=== PATIENT | male | born 1990 | race Caucasian/White ===

== ENCOUNTER 2017-02-26 15:45 | Emergency (ER) | payer BC ==
[~2017-02-26] VITALS: Ht 180.3 cm; Wt 83.9 kg
[2017-02-26 15:45] VITALS: BP_SYST 128
[2017-02-26 16:59] LABS: CREATININE 1.4 mg/dL (0.55-1.30); POTASSIUM 3.9 mmol/L (3.5-5.1)
[2017-02-26 17:02] LABS: HEMATOCRIT 47.7 % (36-54); MEAN CORPUSCULAR HEMOGLOBIN 28 pg (27-31); MEAN CORPUSCULAR HGB CONC 34 % (32-36); MEAN CORPUSCULAR VOLUME 84 fL (79.0-98.0); PLATELET COUNT (AUTO) 256 K/uL (130-430); RED BLOOD CELL COUNT(AUTO) 5.67 MIL/uL (4.2-6.2); RED CELL DISTRIBUTION WIDTH 12.3 % (9.0-15.0); WHITE BLOOD COUNT (AUTO) 12.3 K/uL (4.8-10.8)
[2017-02-26 17:04] LABS: ALBUMIN 4.4 g/dL (3.4-4.8); TOTAL BILIRUBIN 0.9 mg/dL (0.0-1.0); TOTAL PROTEIN, SERUM 7.9 g/dL (6.4-8.3)
[2017-02-26 17:08] LABS: BAND % (MANUAL) 8 % (0-6); BASOPHILS % (MANUAL) 0 % (0-2); EOSINOPHILS % (MANUAL) 1 % (0-7); LYMPHOCYTES % (MANUAL) 4 % (20-46); MONOCYTES % (MANUAL) 6 % (0-11)
[2017-02-26] MEDS: NACL 0.9% 1,000 ML IV ONE (17:29)
[2017-02-26] MEDS: KETOROLAC TROMETHAMINE 30 MG VIAL IVP ONE (17:29)
[2017-02-26 18:52] VITALS: BP_SYST 133
== END 2017-02-26 18:50 | disposition home or self-care (01) ==
LOC: SED 15:45
DX: K52.9 Noninfective gastroenteritis and colitis, unspecified (principal)
CPT/HCPCS: 36415; 74176; 80053; 83690; 85007; 85027; 96361; 96374; 99285; J1885; J7030

== ENCOUNTER 2018-03-31 04:35 | Emergency (ER) | payer BC ==
[~2018-03-31] VITALS: Ht 180.3 cm; Wt 86.2 kg
[2018-03-31 04:41] VITALS: BP_SYST 119
[2018-03-31] MEDS ORDERED: ONDANSETRON 4 MG ODT TAB PO ONE (05:00)
[2018-03-31] MEDS ORDERED: IBUPROFEN 800 MG TABLET PO ONE (05:15)
[2018-03-31 05:50] VITALS: BP_SYST 121
== END 2018-03-31 05:50 | disposition home or self-care (01) ==
LOC: SED 04:35
DX: R10.84 Generalized abdominal pain (principal); R11.0 Nausea; R19.7 Diarrhea, unspecified
CPT/HCPCS: 74021; 99284; Q0162